=== PATIENT | female | born 1995 | race Caucasian/White ===

== ENCOUNTER → 2016-05-25 | Outpatient (CLI) | payer SELFPAY ==
[2016-05-25 13:21] LABS: BASO % 0.1 % (0.0-1.0); EOS % 0.2 % (0.0-3.0); LARGE UNSTAINED CELL # 0.1 K/mm3 (0.0-0.4); LARGE UNSTAINED CELL % 0.9 % (0.0-4.0); LYMPH # 1.9 K/mm3 (1.5-6.5); LYMPH % 12.3 % (24.0-44.0); MEAN CORPUSCULAR HEMOGLOBIN 31.1 pg (27.0-33.0); MEAN CORPUSCULAR HGB CONC 35.4 g/dl (32.0-36.5); MEAN CORPUSCULAR VOLUME 87.7 fl (80.0-96.0); MONO # 0.5 K/mm3 (0.0-0.8); MONO % 3.1 % (0.0-5.0); NEUTROPHILS # 12.9 K/mm3 (1.8-7.7); NEUTROPHILS % 83.4 % (36.0-66.0); PLATELET COUNT, AUTOMATED 262 k/mm3 (150-450); RED CELL DISTRIBUTION WIDTH 11.8 % (11.5-14.5); WHITE BLOOD COUNT 15.5 K/mm3 (4.0-10.0)
[2016-05-25 14:21] LABS: CONTROL LINE INT CTR LINE PRESENT; HIV SCRN NEGATIVE (NEGATIVE); HIV SCRN1 NEGATIVE (NEGATIVE)
[2016-05-26 09:58] LABS: HBsAg Prenatal NEGATIVE (NEGATIVE)
== END ==
LOC: M WUC 08:45
PROVIDERS: ATTEND Obstetrics & Gynecology
DX: Z34.81 Encounter for supervision of other normal pregnancy, first trimester (principal); Z36 Encounter for antenatal screening of mother

== ENCOUNTER → 2016-07-01 | Outpatient (CLI) | payer OTHER | LOC: M SMT 08:46 | PROVIDERS: ATTEND Obstetrics & Gynecology | DX: Z36 Encounter for antenatal screening of mother (principal); Z31.438 Encounter for other genetic testing of female for procreative management ==

== ENCOUNTER → 2016-08-06 | Outpatient (CLI) | payer OTHER ==
--- NOTE | 2016-08-06 16:31 | REP ---
Obstetric ultrasound for anatomy: There is a single intrauterine gestation in a vertex presentation. There is motion and and cardiac activity, the heart rate is 139 beats per minute. Placenta is posterior. There is no placenta previa or abruptio. The placenta demonstrates grade zero maturity. The amniotic fluid volume subjectively is normal. The cervix measures 3.5 cm length. Gestational age by today's ultrasound is 19 weeks 2 days. The SOCRATES is 12/29/2016. There is no prior ultrasound. The LMP is unknown. weight is 292 grams (0 pounds, 10 ounces). This is the 49th percentile for 19 weeks 2 days. The following anatomic structures are identified and are unremarkable: Cranium, choroid plexus, cavum, cerebellum, cisterna magna, face, facial profile, lungs, four-chamber heart, cardiac right and left ventricular outflow tracts, diaphragm, stomach, cord insertion, three-vessel cord, kidneys, bladder, spine and upper lower extremities. No anomalies are identified. Balloon Signed by Corey Ham MD 08/06/2016 04:22 P
== END ==
LOC: M SMT 14:54
PROVIDERS: ATTEND Obstetrics & Gynecology
DX: Z34.82 Encounter for supervision of other normal pregnancy, second trimester (principal); Z36 Encounter for antenatal screening of mother

== ENCOUNTER → 2016-09-24 | Outpatient (CLI) | payer OTHER ==
[2016-09-24 13:35] LABS: BASO % 0.2 % (0.0-1.0); EOS % 0.4 % (0.0-3.0); LARGE UNSTAINED CELL # 0.2 K/mm3 (0.0-0.4); LARGE UNSTAINED CELL % 1.1 % (0.0-4.0); LYMPH # 1.5 K/mm3 (1.5-6.5); LYMPH % 10.2 % (24.0-44.0); MEAN CORPUSCULAR HEMOGLOBIN 31.4 pg (27.0-33.0); MEAN CORPUSCULAR VOLUME 92.5 fl (80.0-96.0); MONO # 0.5 K/mm3 (0.0-0.8); MONO % 3.4 % (0.0-5.0); NEUTROPHILS # 12.3 K/mm3 (1.8-7.7); NEUTROPHILS % 84.7 % (36.0-66.0); PLATELET COUNT, AUTOMATED 231 k/mm3 (150-450); RED CELL DISTRIBUTION WIDTH 12.2 % (11.5-14.5); WHITE BLOOD COUNT 14.5 K/mm3 (4.0-10.0)
== END ==
LOC: M SMT 09:03
PROVIDERS: ATTEND Advanced Practice Midwife
DX: Z34.02 Encounter for supervision of normal first pregnancy, second trimester (principal); Z36 Encounter for antenatal screening of mother

== ENCOUNTER → 2016-12-01 | Outpatient (REF) | payer OTHER ==
[~2016-12-01] MED LIST: ACET50TA PO; COLA100C5 PO; IBUP-1114 PO; MOM30SS PO; PRENTAB9 PO
== END ==
LOC: M LAB REF 17:06
PROVIDERS: ATTEND Advanced Practice Midwife
DX: Z34.83 Encounter for supervision of other normal pregnancy, third trimester (principal); Z36 Encounter for antenatal screening of mother

== ENCOUNTER 2016-12-28 08:20 | Inpatient (IN) | payer OTHER ==
[2016-12-28] VITALS (41 sets, daily range): BP systolic 114–180; BP diastolic 56–88
[~2016-12-28] VITALS: Ht 162.6 cm; Wt 74.0 kg
[2016-12-28] MEDS ORDERED: LACTATED RINGER'S 1000 ML IV STA (11:05)
[2016-12-28 11:43] LABS: MEAN CORPUSCULAR HEMOGLOBIN 28.7 pg (27.0-33.0); MEAN CORPUSCULAR HGB CONC 34.5 g/dl (32.0-36.5); MEAN CORPUSCULAR VOLUME 83.3 fl (80.0-96.0); WHITE BLOOD COUNT 20.8 K/mm3 (4.0-10.0)
[2016-12-28] MEDS ORDERED: FENTANYL 2MCG/ML ROPIVACAINE 0.2% IN 0.9% NACL 200ML IVBAG As Ordered ONE (12:27)
[2016-12-28] MEDS ORDERED: EPIDURAL COMMENT XX SCH (13:00)
[2016-12-28] MEDS ORDERED: NALOXONE INJ 0.4 MG/1 ML VIAL (J2310) IV PRN (13:00)
[2016-12-28] MEDS ORDERED: EPIDURAL/PCA KEYS XX PRN (13:00)
[2016-12-28] MEDS ORDERED: LACTATED RINGER'S 1000 ML IV PRN (13:00)
[2016-12-28] MEDS ORDERED: REFRIGERATOR IV KEYS XX PRN (13:00)
[2016-12-28] MEDS ORDERED: diphenhydrAMINE INJ 50MG/ML VIAL (J1200) IV PRN (13:00)
[2016-12-28] MEDS ORDERED: ONDANSETRON 4MG/2ML VIAL (J2405) IV PRN (13:00)
[2016-12-28] MEDS ORDERED: FENTANYL/ROPIVACAINE/NACL BAG 200 ML EPIDURAL SCH (13:00)
[2016-12-28] MEDS ORDERED: ePHEDrine SULFATE 25 MG/5 ML(5MG/ML) SYRINGE IV PRN (13:00)
[2016-12-28] MEDS ORDERED: OXYTOCIN 30 UNITS IN 0.9% NaCl 500ML IV BAG (J2590) As Ordered ONE (13:39)
[2016-12-28] MEDS: LR 1,000 ML IV SCH ×2 (13:43→21:10)
[2016-12-28] MEDS ORDERED: OXYTOCIN DRIP 30 UNITS in APPROPRIATE DILUENT 1 EA IV SCH (13:45)
[2016-12-28] MEDS: ACETAMINOPHEN 500 MG TAB PO PRN (19:34)
[2016-12-29] MEDS ORDERED: MEASLES,MUMPS,RUBELLA VACCINE INJ (MMR-II) (90707) SC SCH (03:00)
[2016-12-29] MEDS ORDERED: ANUSOL HC CREAM 30GM TOP PRN (03:00)
[2016-12-29] MEDS ORDERED: DIBUCAINE 1% OINTMENT 30GM TOP PRN (03:00)
[2016-12-29] MEDS ORDERED: MOM 30ML SUSPENSION UDC PO PRN (03:00)
[2016-12-29] MEDS ORDERED: RHOGAM 300 MCG (1500 IU) INJ (J2790) IM SCH (03:00)
[2016-12-29] MEDS ORDERED: DOCUSATE SODIUM 100 MG CAP PO PRN (03:00)
[2016-12-29] MEDS: METHYLERGONOVINE MALEATE 0.2 MG TAB PO SCH ×4 (03:02→21:02)
[2016-12-29 03:25] LABS: CORD GAS ABE V -7.6; CORD GAS HCO3 V 17.2 MEQ/L; CORD GAS O2 SAT V 58.4 %; CORD GAS PH V 7.323 UNITS; CORD GAS PO2 V 26.4 mmHg; CORD GAS SBC V 17.5 MEQ/L; CORD GAS TCO2 V 18.3 MEQ/L
[2016-12-29 06:23] VITALS: BP 155/88
--- NOTE | 2016-12-29 07:14 | DN ---
DATE: 12/29/2016 Spontaneous rupture of membranes clear fluid 10:50 a.m. on December 28. Utilized epidural for labor coping. Pitocin augmentation of labor. Temperature max 100.4 times one with resolution to 99 after IV bolus of fluid. Fully dilated 0050, meconium stained fluid noted during second stage. intensive care unit (NICU) was notified. Bulb suctioned oral and nasopharynx on perineum, viable male delivered RENEE at 0221. Spontaneous respirations with stimulation transitioned on maternal abdomen. Cord doubly clamped and cut once pulsations ceased. scores were eight and nine. Cord gases were obtained, results are pending. Placenta Velásquez and intact with three-vessel cord and succenturiate lobe at 0229. Fundus firmed with massage and IV Pitocin bolus. Second-degree vaginal laceration repaired with #3-0 Vicryl Rapide in layers. Estimated blood loss 300 mL. Infant weight 3904 grams, 8 pounds 10 ounces. Sponge, sharp and instrument count correct.
[2016-12-29] MEDS: PRENATAL VITAMINS CHEWABLE TABLET PO SCH (08:09)
[2016-12-29] MEDS: ACETAMINOPHEN 500 MG TAB PO PRN (08:12)
[2016-12-29] MEDS: IBUPROFEN 800 MG TAB PO PRN ×2 (15:37→23:53)
[2016-12-29 17:51] VITALS: BP 129/81
[2016-12-30 05:52] VITALS: BP 132/75
[2016-12-30] MEDS: IBUPROFEN 800 MG TAB PO PRN ×2 (08:14→23:59)
[2016-12-30] MEDS: PRENATAL VITAMINS CHEWABLE TABLET PO SCH (08:14)
[2016-12-30 18:00] VITALS: BP 131/70
[2016-12-30 20:00] VITALS: BP 131/70
[2016-12-31] MEDS ORDERED: METHYLERGONOVINE MALEATE 0.2 MG TAB PO PRN (03:00)
[2016-12-31 05:51] VITALS: BP 131/78
[2016-12-31] MEDS: IBUPROFEN 800 MG TAB PO PRN (06:06)
[2016-12-31] MEDS: PRENATAL VITAMINS CHEWABLE TABLET PO SCH (07:51)
[2016-12-31] MEDS ORDERED: ACET50TA PO (08:15)
[2016-12-31] MEDS ORDERED: PRENTAB9 PO (08:15)
[2016-12-31] MEDS ORDERED: COLA100C5 PO (08:15)
[2016-12-31] MEDS ORDERED: IBUP-1114 PO (08:15)
[2016-12-31] MEDS ORDERED: MOM30SS PO (08:15)
== END 2016-12-31 11:05 | disposition home or self-care (01) | DRG 560 ==
LOC: M LDO 08:20 → M LDI 11:05 → M OBS 12-29 04:15
PROVIDERS: ADMIT Obstetrics & Gynecology; ATTEND Advanced Practice Midwife
PROC: 10E0XZZ Delivery of Products of Conception, External Approach (ICD-10-PCS; principal; 2016-12-29)
PROC: 0KQM0ZZ Repair Perineum Muscle, Open Approach (ICD-10-PCS; 2016-12-29)
DX: O43.193 Other malformation of placenta, third trimester (principal); O77.0 Labor and delivery complicated by meconium in amniotic fluid; Z37.0 Single live birth; Z3A.39 39 weeks gestation of pregnancy; Z79.899 Other long term (current) drug therapy; Z82.49 Family history of ischemic heart disease and other diseases of the circulatory system; Z81.8 Family history of other mental and behavioral disorders; O70.1 Second degree perineal laceration during delivery

== ENCOUNTER → 2019-10-06 | Outpatient (CLI) | payer BC ==
[~2019-10-06] MED LIST changes: -ACET50TA PO; +MAPA500T2 PO
--- NOTE | 2019-10-06 12:01 | REP ---
Clinical: Trauma. Technique: AP, lateral, bilateral oblique views of the left ankle. Findings: Lateral swelling consist with inversion injury. No acute fracture or dislocation. Impression: Lateral swelling. No acute fracture or dislocation. Electronically Signed by Benjamín Varela MD 10/06/2019 11:52 A
== END ==
LOC: M WUC 11:42
PROVIDERS: ATTEND Physician Assistant
DX: M25.572 Pain in left ankle and joints of left foot (principal); M79.89 Other specified soft tissue disorders

== ENCOUNTER → 2020-04-07 | Outpatient (REF) | payer BC | LOC: M PLALAB 13:27 | PROVIDERS: ATTEND Obstetrics & Gynecology | DX: Z3A.08 8 weeks gestation of pregnancy (principal) ==

== ENCOUNTER → 2020-05-06 | Outpatient (REF) | payer BC ==
[2020-05-06 15:59] LABS: HEMATOCRIT 42.2 % (36.0-47.0); MEAN CORPUSCULAR HEMOGLOBIN 29.5 pg (27.0-33.0); MEAN CORPUSCULAR HGB CONC 33.2 g/dl (32.0-36.5); MEAN CORPUSCULAR VOLUME 88.8 fl (80.0-96.0); PLATELET COUNT, AUTOMATED 284 10^3/uL (150-450); RED BLOOD COUNT 4.75 10^6/uL (4.00-5.40); WHITE BLOOD COUNT 15.3 10^3/uL (4.0-10.0)
[2020-05-06 17:44] LABS: HEPATITIS C VIRUS ABY INDEX 0.1 INDEX (<0.8); HIV 1&2 SCREEN CENTAUR NEGATIVE (NEGATIVE)
== END ==
LOC: M PLALAB 13:57
PROVIDERS: ATTEND Obstetrics & Gynecology
DX: Z34.81 Encounter for supervision of other normal pregnancy, first trimester (principal); Z3A.08 8 weeks gestation of pregnancy

== ENCOUNTER → 2020-06-20 | Outpatient (CLI) | payer BC ==
--- NOTE | 2020-06-20 19:39 | REP ---
INDICATION: ANATOMY/SOCRATES 11/12/20. COMPARISON: None. TECHNIQUE: Second trimester OB ultrasound FINDINGS: Scanning demonstrates a viable single intrauterine gestation in a breech lie. motion is observed and heart rate is recorded at 142 beats per minute. An anterior, grade zero placenta is seen without evidence of previa. Mid cord insertion on the placenta. amniotic fluid is subjectively normal. Closed cervical length is measured at 3.6 cm transabdominally. No extrauterine abnormality is observed. No anomaly is seen. The following anatomic structures are identified and felt to be sonographically unremarkable: cranium, choroid plexus, cavum, cerebellum and posterior fossa, face and profile, lungs, four-chamber heart with left and right ventricular outflow tract views, diaphragm, left-sided stomach, abdominal wall cord insertion, three-vessel umbilical cord, kidneys and bladder, spine, and upper and lower extremities. Biometry chart: BPD 4.7 cm; 20 weeks 1 days Head circumference 17.7 cm; 20 weeks 1 days Abdominal circumference 15.2 cm; 20 weeks 3 days Femur length 3.0 cm; 19 weeks 1 days Humeral length 2.8 cm; 19 weeks 1 days HC/AC ratio normal 1.16 Cephalic index normal 0.73 Estimated weight 317 grams, 0 pounds 11 ounces, 78th percentile for 19 weeks 2 days. IMPRESSION: Viable single intrauterine gestation at 19 weeks 6 days by today's composite sonographic criteria. Expected gestational age estimate based on patient's statement is 19 weeks is 2 days. SOCRATES established is 11/12/2020 . No anomaly. <Electronically signed by Navdeep Clark > 06/20/201935
== END ==
LOC: M WHC 14:59
PROVIDERS: ATTEND Advanced Practice Midwife
DX: Z36.9 Encounter for antenatal screening, unspecified (principal); Z3A.19 19 weeks gestation of pregnancy

== ENCOUNTER → 2020-09-05 | Outpatient (CLI) | payer BC | LOC: M LAB 08:30 | PROVIDERS: ATTEND Advanced Practice Midwife | DX: O99.810 Abnormal glucose complicating pregnancy (principal) ==

== ENCOUNTER → 2020-10-08 | Outpatient (REF) | payer BC ==
[2020-10-08 17:21] LABS: HEMATOCRIT 33.5 % (36.0-47.0); HEMOGLOBIN 10.7 g/dl (12.0-15.5); MEAN CORPUSCULAR HEMOGLOBIN 27.2 pg (27.0-33.0); MEAN CORPUSCULAR HGB CONC 31.9 g/dl (32.0-36.5); PLATELET COUNT, AUTOMATED 309 10^3/uL (150-450); RED BLOOD COUNT 3.94 10^6/uL (4.00-5.40); WHITE BLOOD COUNT 14.1 10^3/uL (4.0-10.0)
[2020-10-08 17:46] LABS: ALT/SGPT 11 U/L (12-78); BILIRUBIN,TOTAL 0.3 MG/DL (0.2-1.0); CREATININE FOR GFR 0.51 MG/DL (0.55-1.30); GLOMERULAR FILTRATION RATE > 60.0 (>60); LDH LACTATE DEHYDROGENASE 145 U/L (84-246); URIC ACID 3.5 MG/DL (2.6-6.0)
== END ==
LOC: M PLALAB 15:07
PROVIDERS: ATTEND Advanced Practice Midwife
DX: O16.3 Unspecified maternal hypertension, third trimester (principal)

== ENCOUNTER → 2020-10-20 | Outpatient (CLI) | payer BC ==
--- NOTE | 2020-10-20 14:58 | REP ---
INDICATION: HYPERTENSION, GROWTH, AVELINO. COMPARISON: Comparison sonography June 20, 2020.. TECHNIQUE: Transabdominal obstetric sonography. FINDINGS: Scanning through the gravid uterus demonstrates a viable single intrauterine gestation in cephalic lie. motion is observed and heart rate is recorded at 127 beats per minute. A posterior placenta is seen, grade 2, without evidence of placenta previa. No extrauterine abnormality is observed. Amniotic fluid is subjectively normal. No anomaly is seen. The following anatomic structures are identified and felt to be sonographically unremarkable: cranium, choroid plexus, cavum, cerebellum and posterior fossa, face and profile, lungs, four-chamber heart with left and right ventricular outflow tract views, diaphragm, left-sided stomach, abdominal wall cord insertion, three-vessel umbilical cord, kidneys and bladder, spine, and upper and lower extremities. Biometry chart: BPD 9.4 cm, 38 weeks 0 days Head circumference 33.4 cm, 38 weeks 2 days Abdominal circumference 35.2 cm, 39 weeks 1 day Femur length 7.5 cm, 38 weeks 2 days Humeral length 6.4 cm, 37 weeks 0 days HC AC ratio normal 0.95 Cephalic index normal 0.79 Estimated weight 3571 g, 7 lb 13 oz, 94th percentile for 36 weeks 5 days SD ratio normal 3.22 AVELINO normal 21.4 cm IMPRESSION: Viable single intrauterine gestation at 38 weeks 1 days by today's composite sonographic criteria. SOCRATES by today's sonography November 02, 2020. No complication identified. Expected gestational age estimate from known SOCRATES of November 12, 2020 is 36 weeks 5 days. <Electronically signed by Roman Villalpando > 10/20/20 3140
== END ==
LOC: M WHC 13:45
PROVIDERS: ATTEND Advanced Practice Midwife
DX: O13.3 Gestational [pregnancy-induced] hypertension without significant proteinuria, third trimester (principal); Z3A.38 38 weeks gestation of pregnancy

== ENCOUNTER 2020-10-26 08:53 | Inpatient (IN) | payer BC ==
[~2020-10-26] VITALS: Ht 165.1 cm; Wt 85.5 kg
[2020-10-26] VITALS (15 sets, daily range): BP systolic 112–139; BP diastolic 57–90
--- NOTE | 2020-10-26 09:28 | HPEPDOC ---
Obstetrical History & Physical General Date of Admission Oct 26, 2020 at 08:53 History of Present Illness 25 yo female at 37 4/7 weeks gestation by LMP c/w 8 week ultrasound (EDC =11/12/2020) presents for labor induction, The indication for delivery< 39 weeks is gestational hypertension. no contractions. Information Provided By: Patient Age: 25 : 3 Term: 1 Pre-term: 0 Abortions: 1 Livin Care Care: Good Care Dating Final EDC: Nov 12, 2020 Final EDC by: LMP, 1st trimester (US) Antepartum Course Diagnos(e)s gestational hypertension starting at 35 weeks Past Medical History Past Medical History Medical History OB hx:1. 2009 ETOP 2. 12/29/2016: 40 week 8 lb 10 oz male med hx: chlamydia infection surgery: eye surgery Family History Significant Family History: No pertinent family hx Social History Marital Status: Family situation: Spouse/partner home Psychosocial History: No pertinent psych hx * Smoker: non-smoker Allergies Coded Allergies: No Known Allergies (Unverified , 12/28/16) Medications Scheduled No.137/Iron/Folic Acd ( Vitamin Tablet) 1 Tab Tab, 1 TAB PO DAILY Physical Examination Physical Examination GENERAL: Alert and oriented times three. BREAST: . ABDOMEN: Gravid and non-tender to touch. FETUS: Is vertex (VTX) by sterile vaginal examination (SVE), fetus is vertex (VTX) by Dae. HEART RATE: Regular rate and rhythm. LUNGS: Clear to auscultation (CTA). EXTREMITIES: No edema. No clonus. Deep tendon reflexes (DTRs) + . Laboratory Data 24H [facility]S Laboratory Tests 2 10/26/20 09:06: Serology Scanned Report Hepatitis B Testing Pertinent Laboratoy Data Blood Type: O+ Group B Streptococcus: Negative Vaginal Examination Dilation: 1cm Effacement: 70% Station: -2 Cervical Consistency: Soft Cervical Position: Posterior Presentation: Cephalic presentation Assessment Variability: Moderate Accelerations: Present Decelerations: None Tocometer Frequency: irregular Assessment/Plan Assessment Pt is a 25-year-old (G)3 para (P)1-0-1-1 at 37+4 weeks by LMP c/w 8 week ultrasound presents for labor induction due to gestational hypertension. Plan Admit and orient. Cad Draftsman and consent. Diet: reg Group B Streptococcus (GBS) negative. Labs and intravenous (IV) per unit protocol. Anticipate [normal spontaneous delivery (). C-S as appropriate. PAULY BARRIENTOS MD Oct 26, 2020 09:28
[2020-10-26] MEDS: miSOPROStol 50MCG 1/2 TABLET SL SCH ×3 (09:46→18:00)
[2020-10-26 09:57] LABS: HEMATOCRIT 32.5 % (36.0-47.0); HEMOGLOBIN 10.4 g/dl (12.0-15.5); MEAN CORPUSCULAR VOLUME 81.3 fl (80.0-96.0); PLATELET COUNT, AUTOMATED 327 10^3/uL (150-450); WHITE BLOOD COUNT 11.9 10^3/uL (4.0-10.0)
[2020-10-26] MEDS ORDERED: OXYTOCIN DRIP 30 UNITS in IV 1 EA IV SCH (21:20)
[2020-10-26] MEDS ORDERED: PROMETHAZINE INJ 25 MG/ML VIAL (J2550) IV ONE (21:20)
[2020-10-26] MEDS ORDERED: BUTORPHANOL 2 MG/ML INJ (J0595) IV ONE (21:20)
[2020-10-26] MEDS ORDERED: LR 1,000 ML IV SCH (21:20)
[2020-10-27] VITALS (10 sets, daily range): BP systolic 116–153; BP diastolic 59–83
[2020-10-27] MEDS ORDERED: FENTANYL 2MCG/ML ROPIVACAINE 0.2% IN 0.9% NACL 100ML IVBAG As Ordered ONE (00:22)
[2020-10-27] MEDS ORDERED: ePHEDrine SULFATE 25 MG/5 ML(5MG/ML) SYRINGE IV PRN (00:52)
[2020-10-27] MEDS ORDERED: NALOXONE INJ 0.4MG/1ML VIAL (J2310 PER 1MG) IV PRN (00:52)
[2020-10-27] MEDS ORDERED: REFRIGERATOR IV KEYS XX PRN (00:52)
[2020-10-27] MEDS ORDERED: diphenhydrAMINE 50MG/ML VIAL (J1200) IV PRN (00:52)
[2020-10-27] MEDS ORDERED: LACTATED RINGER'S 1000 ML IV PRN (00:52)
[2020-10-27] MEDS ORDERED: EPIDURAL COMMENT XX SCH (00:52)
[2020-10-27] MEDS ORDERED: EPIDURAL/PCA KEYS XX PRN (00:52)
[2020-10-27] MEDS ORDERED: ONDANSETRON 4MG/2ML VIAL IV PRN (00:52)
[2020-10-27] MEDS ORDERED: FENTANYL/ROPIVACAINE/NACL BAG 100 ML EPIDURAL SCH (00:52)
--- NOTE | 2020-10-27 01:12 | DNPDOC ---
[facility] Delivery Note Delivery Note DATE OF DELIVERY: 10/27/2020 PREDELIVERY DIAGNOSIS: 37-4/7 weeks' gestation, gestational hypertension, induction. POST DELIVERY DIAGNOSIS: Delivered. PROCEDURE: Spontaneous vaginal delivery. READING INTERVENTIONIST: Dr. Pauly Barrientos MD ANESTHESIA: none. ESTIMATED BLOOD LOSS: 300 mL. FINDINGS: 7 pound 8 ounce male , Score 8/9. DELIVERY SUMMARY: Patient is a 25-year-old 1 now para 1 who was admitted for induction of labor due to gestational hypertension. She received 3 doses of Misoprostol. She then received Pitocin. She had spontaneous rupture membranes with meconium noted. She had a 10-minute second stage of labor resulting in a 7 pound 8 ounce male 's 8 and 9. She was not able to receive epidural anesthesia in time. The cord was uncapped and got amp was and off to the waiting nurses. The placenta was delivered spontaneously. Patient received IV Pitocin immediately after delivery of the placenta. There were no vaginal lacerations present. Sponge counts were correct. PAULY BARRIENTOS MD Oct 27, 2020 01:12
[2020-10-27] MEDS ORDERED: DOCUSATE SODIUM 100MG CAPSULE PO PRN (03:20)
[2020-10-27] MEDS ORDERED: IBUPROFEN 600MG TAB PO PRN (03:20)
[2020-10-27] MEDS ORDERED: MEASLES,MUMPS,RUBELLA VACCINE INJ (MMR-II) (90707) SC SCH (03:20)
[2020-10-27] MEDS ORDERED: ACETAMINOPHEN TAB 650MG DOSE (2X325MG) PO PRN (03:20)
[2020-10-27] MEDS ORDERED: OXYTOCIN DRIP 30 UNITS in IV 1 EA IV ONE (03:20)
[2020-10-27] MEDS ORDERED: RHOGAM 300 MCG (1500 IU) INJ (J2790) IM SCH (03:20)
[2020-10-27] MEDS ORDERED: METHYLERGONOVINE MALEATE 0.2 MG TAB PO PRN (03:20)
[2020-10-27] MEDS: ACETAMINOPHEN 500 MG TAB PO PRN ×3 (04:22→22:59)
[2020-10-27] MEDS: PRENATAL VITAMINS CHEWABLE TABLET PO SCH (08:29)
[2020-10-27] MEDS: IBUPROFEN 800 MG TAB PO PRN (15:01)
[2020-10-28] MEDS: IBUPROFEN 800 MG TAB PO PRN (01:41)
[2020-10-28 06:00] VITALS: BP 122/71
[2020-10-28] MEDS ORDERED: IBUP80TA PO (08:22)
[2020-10-28] MEDS ORDERED: ACET-683 PO (08:22)
[2020-10-28] MEDS: PRENATAL VITAMINS CHEWABLE TABLET PO SCH (08:33)
[2020-10-28 17:57] VITALS: BP 140/65
== END 2020-10-28 19:30 | disposition home or self-care (01) | DRG 560 ==
LOC: M LDI 08:53 → EEVIPCON 08:53 → M OBS 10-27 04:25
PROVIDERS: ADMIT Specialist; ATTEND Specialist
PROC: 3E0P7GC Introduction of Other Therapeutic Substance into Female Reproductive, Via Natural or Artificial Opening (ICD-10-PCS; 2020-10-26)
PROC: 10E0XZZ Delivery of Products of Conception, External Approach (ICD-10-PCS; principal; 2020-10-27)
PROC: 10907ZC Drainage of Amniotic Fluid, Therapeutic from Products of Conception, Via Natural or Artificial Opening (ICD-10-PCS; 2020-10-27)
DX: O13.4 Gestational [pregnancy-induced] hypertension without significant proteinuria, complicating childbirth (principal); Z3A.37 37 weeks gestation of pregnancy; Z37.0 Single live birth

== ENCOUNTER → 2023-04-18 | Outpatient (CLI) | payer BC ==
[~2023-04-18] MED LIST changes: +ACET-683 PO; +IBUP80TA PO
== END ==
LOC: M PLALAB 08:35
PROVIDERS: ATTEND Specialist
DX: Z34.82 Encounter for supervision of other normal pregnancy, second trimester (principal)

== ENCOUNTER → 2023-05-30 | Outpatient (CLI) | payer BC | LOC: M WHC 10:03 | PROVIDERS: ATTEND Specialist | DX: Z34.82 Encounter for supervision of other normal pregnancy, second trimester (principal) ==

== ENCOUNTER → 2023-07-20 | Outpatient (CLI) | payer BC ==
[2023-07-20 13:58] LABS: HEMATOCRIT 32.8 % (36.0-47.0); HEMOGLOBIN 10.8 g/dl (12.0-15.5); MEAN CORPUSCULAR HEMOGLOBIN 29.2 pg (27.0-33.0); MEAN CORPUSCULAR HGB CONC 32.9 g/dl (32.0-36.5); MEAN CORPUSCULAR VOLUME 88.6 fl (80.0-96.0); PLATELET COUNT, AUTOMATED 302 10^3/uL (150-450); WHITE BLOOD COUNT 20.6 10^3/uL (4.0-10.0)
[2023-07-20 14:35] LABS: GC DNA AMPLIFICATION NEGATIVE (NEGATIVE)
== END ==
LOC: M PLALAB 09:23
PROVIDERS: ATTEND Obstetrics & Gynecology
DX: Z34.92 Encounter for supervision of normal pregnancy, unspecified, second trimester (principal)

== ENCOUNTER → 2023-09-27 | Outpatient (REF) | payer BC | LOC: M SFHCWAGY 12:22 | PROVIDERS: ATTEND Obstetrics & Gynecology | DX: O12.13 Gestational proteinuria, third trimester (principal); Z3A.00 Weeks of gestation of pregnancy not specified ==

== ENCOUNTER → 2023-09-28 | Outpatient (REF) | payer BC ==
[2023-09-30 15:09] LABS: HPV APTIMA Negative (Negative)
== END ==
LOC: M PLALAB 09:57
PROVIDERS: ATTEND Advanced Practice Midwife
DX: Z12.4 Encounter for screening for malignant neoplasm of cervix (principal)
CPT/HCPCS: 87081; 87624; G0123

== ENCOUNTER 2023-10-07 07:32 | Inpatient (IN) | payer BC ==
[2023-10-07] VITALS (16 sets, daily range): BP systolic 118–180; BP diastolic 58–97
[~2023-10-07] VITALS: Ht 165.1 cm; Wt 98.6 kg
[2023-10-07] MEDS ORDERED: LIDOCAINE 1% MDV 20ML VIAL INFIL PRN (07:50)
[2023-10-07] MEDS ORDERED: TRANEXAMIC ACID INJection 1,000 MG in NS 100 ML IV PRN (07:50)
[2023-10-07] MEDS ORDERED: CARBOPROST TROMETHAMINE 250 MCG/ML AMP IM PRN (07:50)
[2023-10-07] MEDS ORDERED: METHYLERGONOVINE MALEATE 0.2MG/ML 1ML VIAL IM PRN (07:50)
[2023-10-07] MEDS ORDERED: HOME MED LIST COMPLETE! XX SCH (07:55)
[2023-10-07 08:38] LABS: HEMATOCRIT 31.3 % (36.0-47.0); HEMOGLOBIN 10.1 g/dl (12.0-15.5); MEAN CORPUSCULAR HEMOGLOBIN 25.2 pg (27.0-33.0); MEAN CORPUSCULAR HGB CONC 32.3 g/dl (32.0-36.5); MEAN CORPUSCULAR VOLUME 78.1 fl (80.0-96.0); PLATELET COUNT, AUTOMATED 293 10^3/uL (150-450); RED BLOOD COUNT 4.01 10^6/uL (4.00-5.40); WHITE BLOOD COUNT 13.6 10^3/uL (4.0-10.0)
[2023-10-07] MEDS: miSOPROStol 50MCG 1/2 TABLET PO SCH (08:44)
[2023-10-07 09:04] LABS: URIC ACID 5.9 MG/DL (3.1-7.8)
[2023-10-07 09:06] LABS: LDH LACTATE DEHYDROGENASE 175 U/L (120-246)
[2023-10-07 09:07] LABS: ALT/SGPT 12 U/L (7.0-40); AST/SGOT 11 U/L (<34); BILIRUBIN,TOTAL 0.5 MG/DL (0.3-1.2); CREATININE FOR GFR 0.53 MG/DL (0.55-1.30); GLOMERULAR FILTRATION RATE > 60.0 (>60)
[2023-10-07 09:47] LABS: HEPATITIS C VIRUS ABY INDEX 0.02 INDEX (<0.8)
[2023-10-07] MEDS: LACTATED RINGER'S 1000 ML IV STA (23:05)
[2023-10-07] MEDS ORDERED: diphenhydrAMINE 50MG/ML VIAL IV PRN (23:45)
[2023-10-07] MEDS ORDERED: ePHEDrine SULFATE 25 MG/5 ML(5MG/ML) SYRINGE IVP PRN (23:45)
[2023-10-07] MEDS ORDERED: NALOXONE INJ 0.4MG/1ML VIAL IV PRN (23:45)
[2023-10-07] MEDS ORDERED: LR 500 ML IV PRN (23:45)
[2023-10-07] MEDS ORDERED: ONDANSETRON 4MG 2ML VIAL IV PRN (23:45)
[2023-10-07] MEDS ORDERED: EPIDURAL/PCA KEYS XX PRN (23:45)
[2023-10-08] VITALS (38 sets, daily range): BP systolic 114–154; BP diastolic 55–95; O2SAT 96–100
[2023-10-08] MEDS: FENTANYL/ROPIVACAINE/NACL BAG 100 ML EPIDURAL SCH (00:29)
[2023-10-08] MEDS ORDERED: OXYTOCIN DRIP 30 UNITS in IV 1 EA IV SCH (00:35)
[2023-10-08] MEDS: LR 1,000 ML IV SCH (02:04)
[2023-10-08] MEDS: OXYTOCIN DRIP 30 UNITS in IV 1 EA IV PRN (06:04)
[2023-10-08] MEDS ORDERED: CALCIUM CARBONATE 500 MG CHEW U/D PO PRN (07:25)
[2023-10-08] MEDS ORDERED: MOM 30ML SUSPENSION UDC PO PRN (07:25)
[2023-10-08] MEDS ORDERED: RHO(D) IMMUNE GLOBULIN/MALTOSE 500MCG(2500IU)/2.2ML VIAL (WINRHO) IM SCH (07:25)
[2023-10-08] MEDS ORDERED: ANUSOL HC CREAM 30GM TOP PRN (07:25)
[2023-10-08] MEDS ORDERED: IBUPROFEN 600MG TAB PO PRN (07:25)
[2023-10-08] MEDS ORDERED: ACETAMINOPHEN TAB 650MG DOSE (2X325MG) PO PRN (07:25)
[2023-10-08] MEDS ORDERED: DIBUCAINE 1% OINTMENT 30GM TOP PRN (07:25)
[2023-10-08] MEDS: IBUPROFEN 800 MG TAB PO PRN (07:58)
[2023-10-08] MEDS: PRENATAL VITAMINS CHEWABLE TABLET PO SCH (07:59)
[2023-10-08] MEDS: ACETAMINOPHEN 500 MG TAB PO PRN (10:23)
[2023-10-08] MEDS: DOCUSATE SODIUM 100MG CAPSULE PO PRN (20:19)
[2023-10-09 02:00] VITALS: BP 126/68; O2SAT 95
[2023-10-09 06:00] VITALS: BP 141/73; O2SAT 96
[2023-10-09 10:06] VITALS: BP 140/73; O2SAT 97
[2023-10-09] MEDS ORDERED: COLA100C5 PO (11:30)
[2023-10-09] MEDS ORDERED: IBUP-1022 PO (11:30)
[2023-10-09] MEDS ORDERED: ACET-683 PO (11:30)
[2023-10-10] MEDS ORDERED: MEASLES,MUMPS,RUBELLA VACCINE INJ (MMR-II) SC.IMMUN ONE (09:00)
== END 2023-10-09 15:15 | disposition home or self-care (01) | DRG 560 ==
LOC: M LDI 07:32 → M OBS 10-08 11:05
PROVIDERS: ADMIT Advanced Practice Midwife; ATTEND Advanced Practice Midwife
PROC: 3E0P7GC Introduction of Other Therapeutic Substance into Female Reproductive, Via Natural or Artificial Opening (ICD-10-PCS; 2023-10-07)
PROC: 10E0XZZ Delivery of Products of Conception, External Approach (ICD-10-PCS; principal; 2023-10-08)
DX: O13.4 Gestational [pregnancy-induced] hypertension without significant proteinuria, complicating childbirth (principal); O69.81X0 Labor and delivery complicated by cord around neck, without compression, not applicable or unspecified; Z3A.38 38 weeks gestation of pregnancy; Z37.0 Single live birth